=== PATIENT | male | born 1950 | race Caucasian/White ===

== ENCOUNTER 2019-06-13 10:38 | Emergency (ER) | payer MEDICARE ==
[2019-06-13] MEDS ORDERED: Adacel (T-DAP) 0.5 ML SYRINGE ONE (10:43)
[2019-06-13 11:00] LABS: #Eosinphils 0.1 thou/uL (0.0-0.7); #Lymphocytes 2.4 thou/uL (1.20-3.40); #Monocytes 0.5 thou/uL (0.11-0.59); %Basophils 0.4 % (0.0-1.0); %Monocytes 7.6 % (0.0-10.0); Hemoglobin 15.4 g/dL (14.0-18.0); Mean Corpuscular HGB CONC 34.1 g/dL (32.0-36.0); Mean Corpuscular Hemoglobin 31.8 pg (27.0-31.0); Mean Corpuscular Volume 93.2 fL (78.0-98.0); Platelet Count 238 thou/uL (130-400); RBC Distribution Width 11.7 % (11.5-14.5); Red Blood Cell (RBC) Count 4.83 mill/uL (4.70-6.10)
--- NOTE | 2019-06-13 11:00 | CT ---
Exam: Head CT without contrast HISTORY: Pain. Trauma. Patient fell from 5 feet. Patient was working on scaffold. COMPARISON: 06/16/2010 FINDINGS: Hemorrhage: No intraparenchymal hemorrhage or extra-axial hematoma. Brain parenchyma: Cortical boston-white matter differentiation is preserved. No mass effect or midline shift. Basilar cisterns are patent.White matter hypodensities due to chronic small vessel ischemic change Ventricular system: Ventricles and sulci are patent and symmetric. Calvarium: Intact Scalp: Left frontal scalp hematoma and laceration. Sinuses and mastoid air cells: Adequate aeration. IMPRESSION: 1. No intracranial posttraumatic sequelae 2. Intact calvarium 3. Post traumatic changes involving the left frontal scalp
[2019-06-13 11:06] LABS: PTT 28.6 SEC (22.9-36.1); Prothrombin Time 13.1 SEC (12.0-14.7)
--- NOTE | 2019-06-13 11:08 | CT ---
CT CERVICAL SPINE NONCONTRAST: DATE: 06/13/2019 HISTORY: cervical trauma. 68-year-old male status post fall. Reports of the brain CT and C-spine CT were called by telephone to Dr. Fernandes [facility] at 11:03 AM on 06/13/2019. FINDINGS: There are no jumped or perched facets. There is no evidence of acute fracture. The vertebral body hei ghts are maintained. There is no prevertebral soft tissue swelling. There is ACDF hardware at C3, C4, C5, and C6, with interbody cages. There are no osseous bridges between the endplates. IMPRESSION: 1. No evidence of acute fracture or acute traumatic subluxation. 2. Status post anterior cervical discectomy and fusion at C3-4-5-6.
[2019-06-13 11:12] LABS: ALT (SGPT) 17 U/L (8-55); AST (SGOT) 23 U/L (5-34); Albumin 4.2 g/dL (3.4-4.8); Alkaline Phosphatase 79 U/L (40-110); Anion Gap 11 mmol/L (10-20); BUN (Urea Nitrogen) 15 mg/dL (8.4-25.7); Bilirubin, Total 0.6 mg/dL (0.2-1.2); Calc. Creatinine Clearance 0 mL/min (70-130); Calcium 9.3 mg/dL (7.8-10.44); Carbon Dioxide 26 mmol/L (23-31); Chloride 106 mmol/L (98-107); Estimated GFR-MDRD 75; Globulin 2.7 g/dL (2.4-3.5); Glucose 102 mg/dL (80-115); Potassium 4.2 mmol/L (3.5-5.1); Protein, Total 6.9 g/dL (5.8-8.1); Sodium 139 mmol/L (136-145)
[2019-06-13] MEDS ORDERED: Lidocaine 1% (PF) 30 ML VIAL ONE (11:15)
[2019-06-13] MEDS ORDERED: Lidocaine 1% w/Epinephrine 1:100K 20 ML VIAL ONE (11:34)
== END 2019-06-13 14:08 | disposition home or self-care (01) ==
LOC: ERS 10:38
DX: S06.0X9A Concussion with loss of consciousness of unspecified duration, initial encounter (principal); S01.01XA Laceration without foreign body of scalp, initial encounter; S61.307A Unspecified open wound of left little finger with damage to nail, initial encounter; Z23 Encounter for immunization; Z79.82 Long term (current) use of aspirin; Z79.899 Other long term (current) drug therapy; Z87.891 Personal history of nicotine dependence; W11.XXXA Fall on and from ladder, initial encounter
CPT/HCPCS: 12002; 70450; 72125; 80053; 85025; 85610; 85730; 90471; 90715; 96360; G0390; J2001

== ENCOUNTER 2019-08-24 08:05 | Outpatient (CLI) | payer MEDICARE ==
--- NOTE | 2019-08-24 08:25 | ULT ---
ULTRASOUND RETROPERITONEUM LIMITED: (ABDOMINAL AORTA) DATE: 08/24/2019 HISTORY: 68-year-old male for screening for abdominal aortic aneurysm FINDINGS: The caliber of the entire abdominal aorta is within normal limits. IMPRESSION: No abdominal aortic aneurysm.
== END 2019-08-24 08:06 | disposition home or self-care (01) ==
LOC: BICULT 08:05
PROVIDERS: ATTEND Family Medicine
DX: Z13.6 Encounter for screening for cardiovascular disorders (principal)
CPT/HCPCS: 76775